=== PATIENT | female | born 1985 | race Caucasian/White ===

== ENCOUNTER 2020-11-19 10:43 | Emergency (ER) | payer BC ==
[~2020-11-19] VITALS: Ht 154.9 cm; Wt 126.0 kg
[~2020-11-19 10:43] MED LIST: IBUP-1060 PO
--- NOTE | 2020-11-19 11:29 | PHYS DOC ---
Past Medical History Past Medical History: No Pertinent History (QUYNH KAY [employer]SEMBLING [employer]ICATOR) Past Surgical History: Appendectomy Additional Past Surgical Histo: LASIX, L&D (QUYNH KAY [employer]SEMBLING FABRICATOR) Smoking Status: Never Smoker Alcohol Use: None Drug Use: None (QUYNH KAY ASSEMBLING FABRICATOR) General Adult EDM: Chief Complaint: ANKLE PROBLEM HPI: HPI: Patient is a 35 year old female who presents with states this morning she tripped down the last 2 stairs and rolled her right ankle. Patient has swelling and pain to the lateral ankle. She states she was able to get up and walk on it. She states that she took some ibuprofen before coming. She states just sitting her pain is at a 3 out of 10. She states when she gets up and walks on it the pain increases. Patient has a history of appendicitis. (QUYNH KAY ASSEMBLING FABRICATOR) Review of Systems: Review of Systems: Constitutional: Denies fever or chills. [] Eyes: Denies change in visual acuity. [] HENT: Denies nasal congestion or sore throat. [] Respiratory: Denies cough or shortness of breath. [] Cardiovascular: Denies chest pain. + Right ankle 2+ edema. [] GI: Denies abdominal pain, nausea, vomiting, bloody stools or diarrhea. [] : Denies dysuria. [] Musculoskeletal: Denies back pain. + Right ankle joint pain. [] Integument: Denies rash. [] Neurologic: Denies headache, focal weakness or sensory changes. [] Endocrine: Denies polyuria or polydipsia. [] Lymphatic: Denies swollen glands. [] Psychiatric: Denies depression or anxiety. [] (QUYNH KAY ASSEMBLING FABRICATOR) Heart Score: C/O Chest Pain: No Risk Factors: Risk Factors: DM, Current or recent (<one month) smoker, HTN, HLP, family history of CAD, obesity. Risk Scores: Score 0 - 3: 2.5% MACE over next 6 weeks - Discharge Home Score 4 - 6: 20.3% MACE over next 6 weeks - Admit for Clinical Observation Score 7 - 10: 72.7% MACE over next 6 weeks - Early Invasive Strategies (QUYNH KAY ASSEMBLING FABRICATOR) Allergies: Allergies: Allergies Coded Allergies Type Severity Reaction Last Updated Verified No Known Drug Allergies 4/26/15 No (QUYNH KAY APRN) Physical Exam: PE: Constitutional: Well developed, well nourished, no acute distress, non-toxic appearance. [] HENT: Normocephalic, atraumatic, bilateral external ears normal, oropharynx moist, no oral exudates, nose normal. [] Eyes: PERRLA, EOMI, conjunctiva normal, no discharge. [] Neck: Normal range of motion, no tenderness, supple, no stridor. [] Cardiovascular:Heart rate regular rhythm, no murmur [] Lungs & Thorax: Bilateral breath sounds clear to auscultation [] Abdomen: Bowel sounds normal, soft, no tenderness, no masses, no pulsatile masses. [] Skin: Warm, dry, no erythema, no rash. [] Back: No tenderness, no CVA tenderness. [] Extremities: Right lateral ankle tenderness, no cyanosis, no clubbing, right lateral ankle ROM intact limited due to swelling, 2+ edema. [] Neurologic: Alert and oriented X 3, normal motor function, normal sensory function, no focal deficits noted. [] Psychologic: Affect normal, judgement normal, mood normal. [] (QUYNH KAY APRN) EKG: EKG: [] (QUYNH KAY APRN) Radiology/Procedures: Radiology/Procedures: [] Impression: [facility] [address] [place] [address] IMAGING REPORT Signed PATIENT: EMERY PLASCENCIA ACCOUNT: [id number] : 1985 LOCATION: ER AGE: 35 SEX: F EXAM STATUS: REG ER ORD. PHYSICIAN: QUYNH KAY APRN REASON: ankle injury with swelling and pain PROCEDURE: ANKLE RIGHT 3V EXAM: Right ankle, 3 views. HISTORY: Pain and swelling. COMPARISON: None. FINDINGS: 3 views of the right ankle are obtained. There is no convincing acute fracture, dislocation or subluxation. The ankle mortise is intact. There is diffuse lateral predominant ankle soft tissue swelling. IMPRESSION: Diffuse lateral predominant ankle soft tissue swelling. No displaced fracture is seen. Electronically signed by: Kaylin Garner MD (11/19/2020 11:35 AM) [id number] DICTATED and SIGNED BY: KAYLIN GARNER MD DATE: 11/19/20 [id number] (QUYNH KAY APRN) Course & Med Decision Making: Course & Med Decision Making Pertinent Labs and Imaging studies reviewed. (See chart for details See HPI. Alert and oriented x4. Ambulatory with a steady gait but does limp on the right lower extremity. Patient has right lateral ankle swelling but no bruising 2+. She does have range of motion in the right ankle but is slightly limited due to swelling. She can wiggle her toes. Skin pink warm and dry. Pedal pulses strong and present. Cap refill less than 2 seconds. No deformity is seen. There is slight tenderness to palpation on the right lateral ankle. X-ray shows no acute findings. Patient be placed in a walking boot. [] (QUYNH KAY APRN) Dragon Disclaimer: Dragon Disclaimer: This electronic medical record was generated, in whole or in part, using a voice recognition dictation system. (QUYNH KAY APRN) Departure Departure Impression: Primary Impression: Ankle pain, right Qualified Codes: M25.571 - Pain in right ankle and joints of right foot Disposition: 01 HOME / SELF CARE / HOMELESS Condition: STABLE Referrals: CITLALY ELLIS APRN (PCP) THI ASCENCIO MD Patient Instructions: Ankle Sprain Additional Instructions: Follow-up with orthopedic in the next week. Use ice and elevation to help with pain and swelling. Take ibuprofen for your pain. Attending Signature Attending Signature I have participated in the care of this patient and I have reviewed and agree with all pertinent clinical information above including history, exam, and recommendations. (KAREEM JEFF DO) QUYNH KAY APRN Nov 19, 2020 11:29 KAREEM JEFF DO Nov 21, 2020 13:06
--- NOTE | 2020-11-19 11:37 | RAD ---
EXAM: Right ankle, 3 views. HISTORY: Pain and swelling. COMPARISON: None. FINDINGS: 3 views of the right ankle are obtained. There is no convincing acute fracture, dislocation or subluxation. The ankle mortise is intact. There is diffuse lateral predominant ankle soft tissue swelling. IMPRESSION: Diffuse lateral predominant ankle soft tissue swelling. No displaced fracture is seen. Electronically signed by: Kaylin Mcgrath MD (11/19/2020 11:35 AM) [id number]
[2020-11-19 11:46] VITALS: BP 132/83
== END 2020-11-19 12:21 | disposition home or self-care (01) ==
LOC: ER 10:43
DX: M25.571 Pain in right ankle and joints of right foot (principal); R22.41 Localized swelling, mass and lump, right lower limb; X50.9XXA Other and unspecified overexertion or strenuous movements or postures, initial encounter; Y93.89 Activity, other specified; Y92.89 Other specified places as the place of occurrence of the external cause; Y99.8 Other external cause status
CPT/HCPCS: 73610; 99283